=== PATIENT | male | born 1960 | race Caucasian/White ===

== ENCOUNTER 2018-11-18 14:35 | Emergency (ER) | payer OTHER ==
[~2018-11-18] VITALS: Ht 190.5 cm; Wt 125.6 kg
[~2018-11-18 14:35] MED LIST: ALLOPURINOL300 MG PO; DEXILANT60 MG PO; INDOMETHACIN50 MG PO; LISINOPRIL10 MG PO; PRILOSEC OTC20 MG PO; PROAIR HFA INH8.5 GM IH; SINGULAIR10 MG PO; SYMBICORT 16010.2 GM INH; ULTRACET TABLE1 EACH PO; VITAMIN D PO
--- OUTSIDE RECORDS SUMMARY | 2018-11-18 14:41 | XMS REPORT | Clinical Summary ---
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 Active triamcinolone (NASACORT) 2 sprays into 0 55 mcg nasal inhaler each nostril daily. Active Problems No known active problems Social History Date Tobacco Use Types Packs/Day Years Used Never Smoker Alcohol Use Drinks/Week oz/Week Comments No Sex Assigned at Date Recorded Not on file Industry Job Start Date Occupation Not on file Not on file Not on file Travel End Travel History Travel Start No recent travel history available. Last Filed Vital Signs Not on file Plan of Treatment Health Maintenance Due Date Last Done Comments COLONOSCOPY SCREENING 2011 SHINGLES VACCINES (#1) 2011 INFLUENZA VACCINE 12/12/2018 Results Not on fileafter 11/17/2017 Insurance Type Payer Benefit Subscriber ID Effective Phone Address Plan / Dates Group TPL TPL TPL-MED-DA xxxxxxxxxx 2016- TA Present Exchange [employer] xxxxxxxxxxxxx 2016-P EXCHANGE [facility] Liability Advance Directives Patient has advance care planning documents on file. For more information, fermin paige contact: Shiv Llamas [address] [place] [address]
--- OUTSIDE RECORDS SUMMARY | 2018-11-18 14:41 | XMS REPORT | Clinical Summary ---
Author Author DIVINA Cloud [facility] HospitalR[facility] Organization [facility] Address Unknown Phone Unavailable Care Team Providers Care Office Rental Clerk Name Role Phone Sharpless PCP Allergies Comments Active Allergy Reactions Severity Noted Date Iodinated Contrast- Oral Swelling 02/08/2017 And Iv Dye Medications End Date Status Medication Sig Dispensed Refills Start Date Active albuterol HFA (VENTOLIN Inhale 2 0 HFA) 90 mcg/actuation puffs by inhaler mouth via inhaler every 6 (six) hours as needed for Wheezing or Shortness of Breath. Active amitriptyline (ELAVIL) 10 Take 10 mg by 0 MG tablet mouth nightly. Active fluticasone (FLONASE) 50 2 sprays by 0 mcg/actuation nasal spray Nasal route daily. Active fluticasone-salmeterol Inhale 1 puff 0 (ADVAIR) 250-50 mcg/dose by mouth via diskus inhaler inhaler every 12 (twelve) hours. Active gabapentin (NEURONTIN) Take 300 mg 0 300 MG capsule by mouth 3 (three) times daily. Active lisinopril Take 10 mg by 0 (PRINIVIL,ZESTRIL) 10 MG mouth daily. tablet Active montelukast (SINGULAIR) Take 10 mg by 0 10 mg tablet mouth nightly. Active omeprazole (PRILOSEC) 40 Take 40 mg by 0 MG capsule mouth 2 (two) times daily. Active ranitidine (ZANTAC) 300 Take 300 mg 0 MG tablet by mouth nightly. Active traMADol (ULTRAM) 50 mg Take 50 mg by 0 tablet mouth every 6 (six) hours as needed for Pain. 11/22/2017 Discontinued lisinopril Take 10 mg by 0 (PRINIVIL,ZESTRIL) 10 MG mouth daily. tablet 11/22/2017 Discontinued naproxen (NAPROSYN) 500 Take 500 mg 0 MG tablet by mouth as needed. 11/22/2017 Discontinued cetirizine (ZYRTEC) 5 MG Take 5 mg by 0 tablet mouth daily. 11/22/2017 Discontinued amitriptyline (ELAVIL) 10 TAKE ONE 0 MG tablet TABLET BY 8 MOUTH AT BEDTIME 11/22/2017 Discontinued gabapentin (NEURONTIN) TAKE 2 0 300 MG capsule CAPSULES BY 8 MOUTH AT NOON 11/22/2017 Discontinued triamcinolone (NASACORT) Nasacort 0 55 mcg nasal inhaler 11/22/2017 Discontinued fluticasone (FLONASE) 50 2 sprays. 0 mcg/actuation nasal spray 8 11/22/2017 Discontinued albuterol HFA (VENTOLIN Inhale 2 0 HFA) 90 mcg/actuation puffs by 8 inhaler mouth via inhaler every 6 (six) hours as needed for Wheezing or Shortness of Breath . 11/22/2017 Discontinued ranitidine (ZANTAC) 300 Take 300 mg 0 MG tablet by mouth nightly. 11/22/2017 Discontinued omeprazole (PRILOSEC) 40 Take 40 mg by 0 MG capsule mouth 2 (two) times daily. Active Problems Problem Noted Date Acute chest pain 11/22/2017 Gastroesophageal reflux disease without esophagitis 11/22/2017 History of hiatal hernia 11/22/2017 Essential hypertension 11/22/2017 BARBER on CPAP 11/22/2017 Obesity (BMI 30.0-34.9) 11/22/2017 Moderate intermittent asthma without complication 11/22/2017 Right sided abdominal pain 11/22/2017 History of cholecystectomy 11/22/2017 History of Svetlana fundoplication 2014 11/22/2017 Chronic back pain greater than 3 months duration 11/22/2017 Resolved Problems Problem Noted Date Resolved Date Chest pain in adult 11/22/2017 11/22/2017 Shortness of breath 11/22/2017 11/22/2017 Dizziness 11/22/2017 11/22/2017 Nausea 11/22/2017 11/22/2017 Inguinal hernia 02/14/2017 11/22/2017 Encounters Care Team Description Date Type Specialty Lana Reyes MD BaljinderKyle pitt MD Chest pain in adult (Primary Dx); Nausea; Shortness of breath; Dizziness 11/22/2017 Emergency Cardiology - 11/24/2017 11/22/2017 Emergency Emergency Medicine 11/22/2017 Orders Only General Internal Medicine after 11/17/2017 Immunizations Name Dates Previously Given Next Due Tdap 05/14/2010 Family History Medical History Relation Name Comments Heart disease Father Heart disease Maternal Grandfather Cancer Maternal Grandmother Heart disease Mother Cancer Sister Relation Name Status Comments Father Maternal Grandfather Maternal Grandmother Mother Sister Social History Date Tobacco Use Types Packs/Day Years Used Never Smoker Smokeless Tobacco: Never Used Alcohol Use Drinks/Week oz/Week Comments No Sex Assigned at Date Recorded Not on file Industry Job Start Date Occupation Not on file Not on file Not on file Travel End Travel History Travel Start No recent travel history available. Last Filed Vital Signs Time Taken Vital Sign Reading 11/24/2017 5:51 AM CDT Blood Pressure 120/67 11/24/2017 9:16 AM CDT Pulse 69 11/24/2017 5:51 AM CDT Temperature 36.5 C (97.7 F) 11/24/2017 9:16 AM CDT Respiratory Rate 18 11/24/2017 9:16 AM CDT Oxygen Saturation 99% - Inhaled Oxygen - Concentration 11/24/2017 7:15 AM CDT Weight 118.5 kg (261 lb 4.8 oz) - Height - 11/24/2017 7:15 AM CDT Body Mass Index 32.66 Plan of Treatment Not on file Implants Device Identifier Shelf Expiration Date Model / Serial / Lot Implanted Type Area Manufactur er 03/10/2021 [id number] / / [id number] Mesh Maliha Pre-Shp 4.5x10cm [id number] Mesh Right: Inguinal CR - [id number] BARD:DAVOL Implanted: Qty: 1 on 02/14/2017 by Gerson Cruz MD Procedures Comments Procedure Name Priority Date/Time Associated Diagnosis RHYTHM STRIP - SCAN 11/27/2017 7:51 AM CDT ED ECG INTERPRETATION Routine 11/26/2017 3:[address] ABDOMEN/PELVIS WITHOUT STAT 11/23/2017 IV CONTRAST 9:30 PM CDT NM CARDIAC PET PERFUSION Routine 11/23/2017 REST AND/OR STRESS 4:23 PM CDT TREADMILL Routine 11/23/2017 TOLERANCE(NON-NUCLEAR 4:04 PM CDT TREADMILL) RHYTHM STRIP - SCAN 11/23/2017 10:52 AM CDT POCT-GLUCOSE METER Routine 11/23/2017 7:07 AM CDT AMYLASE DESEAN 11/22/2017 11:20 PM CDT LIPASE DESEAN 11/22/2017 11:20 PM CDT TROPONIN I DESEAN 11/22/2017 11:20 PM CDT XR ABDOMEN 2 VIEWS FLAT STAT 11/22/2017 AND UPRIGHT 11:08 PM CDT POCT-GLUCOSE METER Routine 11/22/2017 9:51 PM CDT XR CHEST 2 VIEWS STAT 11/22/2017 4:27 PM CDT D-DIMER STAT 11/22/2017 4:08 PM CDT RAPID MYOGLOBIN STAT 11/22/2017 4:00 PM CDT CBC W/PLT COUNT & AUTO STAT 11/22/2017 DIFFERENTIAL 3:59 PM CDT B-TYPE NATRIURETIC FACTOR STAT 11/22/2017 (BNP) 3:59 PM CDT CREATINE KINASE (CK) STAT 11/22/2017 3:59 PM CDT RAPID TROPONIN I STAT 11/22/2017 3:59 PM CDT RAPID CK-MB STAT 11/22/2017 3:59 PM CDT PROTHROMBIN TIME/INR STAT 11/22/2017 3:59 PM CDT MAGNESIUM STAT 11/22/2017 3:59 PM CDT COMPREHENSIVE METABOLIC STAT 11/22/2017 PANEL 3:59 PM CDT CBC W/PLT COUNT & AUTO STAT 11/22/2017 DIFFERENTIAL 3:59 PM CDT ECG 12-LEAD STAT 11/22/2017 3:48 PM CDT after 11/17/2017 Results * RHYTHM STRIP - SCAN (11/27/2017 7:51 AM CDT) Only the most recent of 2 results within the time period is included. Narrative Performed At * ED ECG Interpretation (11/26/2017 3:39 PM CDT) Narrative Performed At Lana Reyes MD 11/26/20173:39 PM ECG/EKG Interpretation Date/Time: 11/22/2017 3:48 PM Performed by: LANA REYES Authorized by: LANA REYES The ECG was interpreted by ED physician. This ECG was not compared with previous ECG(s).The ECG is interpreted as sinus rhythm. Rate is normal rate. Heart rate is 83 BPM. Conduction: conduction normal. T-wave flattening in lead(s) III and aVF. Other findings: no other findings. Right sided lead use: right-sided leads not used. Left sided lead use: Posterior leads were not used. Clinical Impression: non-specific ECGECG reviewed and does not meet STEMI criteria. Patient tolerance: Patient tolerated the procedure well with no immediate complications * CT abdomen/pelvis without iv contrast (11/23/2017 9:30 PM CDT) Specimen Narrative Performed At FINAL REPORT [facility] CT of the abdomen and pelvis History: Abdominal pain Comparison: None available. Technique: Multidetector CT scanning of the abdomen and pelvis was performed from the level of the lung bases to the inferior pubic ramus without contrast. DOSE REDUCTION: The examination was performed according to departmental dose-optimization program which includes automated exposure control, adjustment of the mA and/or kV according to patient size and/or use of iterative reconstruction technique. Discussion: The bilateral lung bases are clear. Lack of IV contrast limits evaluation of solid and hollow visceral organs. No focal hepatic lesions are identified. The gallbladder is surgically absent. There is no intrahepatic or extrahepatic biliary dilatation. The spleen is within normal limits of size. The right adrenal gland is normal. The left adrenal gland contains a left adrenal gland contains a 2.1 cm myelolipoma. The pancreas is within normal limits. The kidneys are normal in size. There is no hydroureteronephrosis. No obstructing renal calculi are identified. The stomach demonstrates postsurgical changes consistent with a Svetlana fundoplication. The stomach, small, and large bowel are nondistended. There is no evidence of obstruction. No bowel wall thickening is appreciated. The appendix is normal. There are scattered colonic diverticula without evidence of acute diverticulitis. There is no free retroperitoneal air or ascites. The abdominal aorta is of normal course and caliber. No enlarged abdominal or retroperitoneal lymph nodes are identified. The urinary bladder is within normal limits. No acute osseous abnormalities are identified. IMPRESSION: 1. Colonic diverticulosis without evidence of acute diverticulitis. 2. Status post cholecystectomy and Svetlana fundoplication. 3. Left adrenal myelolipoma. Signed: Vito Pillai MD Report Verified Date/Time:11/23/2017 21:41:46 Reading Location: [facility] [id number] Consult Reading Room Procedure Note Interface, External Ris In - 11/23/2017 9:43 PM CDT FINAL REPORT CT of the abdomen and pelvis History: Abdominal pain Comparison: None available. Technique: Multidetector CT scanning of the abdomen and pelvis was performed from the level of the lung bases to the inferior pubic ramus without contrast. DOSE REDUCTION: The examination was performed according to departmental dose-optimization program which includes automated exposure control, adjustment of the mA and/or kV according to patient size and/or use of iterative reconstruction technique. Discussion: The bilateral lung bases are clear. Lack of IV contrast limits evaluation of solid and hollow visceral organs. No focal hepatic lesions are identified. The gallbladder is surgically absent. There is no intrahepatic or extrahepatic biliary dilatation. The spleen is within normal limits of size. The right adrenal gland is normal. The left adrenal gland contains a left adrenal gland contains a 2.1 cm myelolipoma. The pancreas is within normal limits. The kidneys are normal in size. There is no hydroureteronephrosis. No obstructing renal calculi are identified. The stomach demonstrates postsurgical changes consistent with a Svetlana fundoplication. The stomach, small, and large bowel are nondistended. There is no evidence of obstruction. No bowel wall thickening is appreciated. The appendix is normal. There are scattered colonic diverticula without evidence of acute diverticulitis. There is no free retroperitoneal air or ascites. The abdominal aorta is of normal course and caliber. No enlarged abdominal or retroperitoneal lymph nodes are identified. The urinary bladder is within normal limits. No acute osseous abnormalities are identified. IMPRESSION: 1. Colonic diverticulosis without evidence of acute diverticulitis. 2. Status post cholecystectomy and Svetlana fundoplication. 3. Left adrenal myelolipoma. Signed: Vito Pillai MD Report Verified Date/Time: 11/23/2017 21:41:46 Reading Location: [facility] B1 [id number] Consult Reading Room Performing Organization Address City/State/Zipcode Phone Number [facility] * NM myocardial perfusion PET (rest and stress) (11/23/2017 4:23 PM CDT) Specimen Narrative Performed At FINAL REPORT [facility] PROCEDURE: Rest/Stress MYOCARDIAL PERFUSION PET with regadenoson\XA9\ CPT CODE: 74600 INDICATION: Chest pain HISTORY: Cardiac risk factors: hypertension, obesity, family hx of early CAD. Other cardiovascular history: None reported. Recent cardiac symptoms: chest pain, dyspnea. Current cardiovascular-related medications: None listed. PROTOCOL: Limited low-dose CT imaging was performed for attenuation correction. 40.1 mCi of Rb-82 chloride was injected iv at rest, and gated PET (positron emission tomography) images were obtained. Subsequently, 40.0 mCi of Rb-82 chloride was injected iv at expected peak pharmacologic effect, and gated PET images were obtained. PRELIMINARY STRESS TEST DATA FROM NONINVASIVE CARDIOLOGY: Pharmacologic stress was by 10-second iv infusion of 0.4 mg of regadenoson. Radiotracer was injected 30 seconds after start of stress. Heart rate was 66 beats/min at rest and 68 beats/min (41% of MPHR) at tracer injection. BP was 116/69 mmHg at rest and 129/63 mmHg at tracer injection. Stress was stopped for predetermined endpoint. The patient experienced dyspnea; treatment was not required. Preliminary ECG evaluation revealed sinus rhythm at rest and no ischemic changes with stress. (Final ECG interpretation and other stress and monitoring data are reported separately by Cardiology.) IMAGING FINDINGS: Study quality is good. Images obtained after rest and stress injections show normal LV activity. LV and RV volumes appear normal. Gated images obtained at rest and with stress show normal LV wall motion and thickening. LVEF at rest is 57%. LVEF at stress is 72%. IMPRESSION: 1. Normal study.2. Appropriate pharmacologic stress.3. Normal myocardial perfusion.4. Normal resting LV function. No deterioration of function is noted with pharmacologic stress.5. Normal extracardiac tracer distribution.6. No previous [facility] study for comparison. NONINVASIVE RISK STRATIFICATION: The above findings are considered low risk (<1% annual mortality rate) based on the following criterion: - Normal or small myocardial perfusion defect at rest or with stress ([facility]. 2012;59(9):857-81.) Signed: Jama Cartwright MD Report Verified Date/Time:11/23/2017 21:20:37 Reading Location: [address] Reading Room Procedure Note Interface, External Ris In - 11/23/2017 9:22 PM CDT FINAL REPORT PROCEDURE: Rest/Stress MYOCARDIAL PERFUSION PET with regadenoson\XA9\ CPT CODE: 56737 INDICATION: Chest pain HISTORY: Cardiac risk factors: hypertension, obesity, family hx of early CAD. Other cardiovascular history: None reported. Recent cardiac symptoms: chest pain, dyspnea. Current cardiovascular-related medications: None listed. PROTOCOL: Limited low-dose CT imaging was performed for attenuation correction. 40.1 mCi of Rb-82 chloride was injected iv at rest, and gated PET (positron emission tomography) images were obtained. Subsequently, 40.0 mCi of Rb-82 chloride was injected iv at expected peak pharmacologic effect, and gated PET images were obtained. PRELIMINARY STRESS TEST DATA FROM NONINVASIVE CARDIOLOGY: Pharmacologic stress was by 10-second iv infusion of 0.4 mg of regadenoson. Radiotracer was injected 30 seconds after start of stress. Heart rate was 66 beats/min at rest and 68 beats/min (41% of MPHR) at tracer injection. BP was 116/69 mmHg at rest and 129/63 mmHg at tracer injection. Stress was stopped for predetermined endpoint. The patient experienced dyspnea; treatment was not required. Preliminary ECG evaluation revealed sinus rhythm at rest and no ischemic changes with stress. (Final ECG interpretation and other stress and monitoring data are reported separately by Cardiology.) IMAGING FINDINGS: Study quality is good. Images obtained after rest and stress injections show normal LV activity. LV and RV volumes appear normal. Gated images obtained at rest and with stress show normal LV wall motion and thickening. LVEF at rest is 57%. LVEF at stress is 72%. IMPRESSION: 1. Normal study. 2. Appropriate pharmacologic stress. 3. Normal myocardial perfusion. 4. Normal resting LV function. No deterioration of function is noted with pharmacologic stress. 5. Normal extracardiac tracer distribution. 6. No previous [facility] study for comparison. NONINVASIVE RISK STRATIFICATION: The above findings are considered low risk (<1% annual mortality rate) based on the following criterion: - Normal or small myocardial perfusion defect at rest or with stress ([facility]. 2012;59(9):857-81.) Signed: Jama Cartwright MD Report Verified Date/Time: 11/23/2017 21:20:37 Reading Location: [place] [id number] [place] Reading Room Performing Organization Address City/State/Zipcode Phone Number [facility] * Treadmill tolerance(Non-Nuclear Treadmill) (11/23/2017 4:04 PM CDT) Specimen Narrative Performed At Protocol Name Regadenoson GE MUSE Time In Exercise Phase 00:01:00 Max. Systolic BP 129 mmHg Max Diastolic BP 63 mmHg Max Heart Rate 68 BPM Max Predicted Heart Rate 164 BPM Reason For Termination Predetermined end point Reason for Test Chest Pain Target HR Formula (220 - Age)*100% Arrhythmias ventricular premature beats-isolated Resting ECG Normal sinus rhythm ST Changes No Significant Changes Overall Impression Indeterminate due to pharmacological stress Chest Pain none HR Response To Exercise BP Response To Exercise No cardiac Rx Confirmed by fellow Kody Tidwell ([id number]) on 11/25/2017 6:27:21 PM Confirmed by MD ESPINAL YOCHAI ([id number]) on 11/25/2017 8:07:52 PM Procedure Note Interface, External Ris In - 11/25/2017 8:08 PM CDT Protocol Name Regadenoson Time In Exercise Phase 00:01:00 Max. Systolic BP 129 mmHg Max Diastolic BP 63 mmHg Max Heart Rate 68 BPM Max Predicted Heart Rate 164 BPM Reason For Termination Predetermined end point Reason for Test Chest Pain Target HR Formula (220 - Age)*100% Arrhythmias ventricular premature beats-isolated Resting ECG Normal sinus rhythm ST Changes No Significant Changes Overall Impression Indeterminate due to pharmacological stress Chest Pain none HR Response To Exercise BP Response To Exercise No cardiac Rx Confirmed by fellow Kody Tidwell ([id number]) on 11/25/2017 6:27:21 PM Confirmed by MD ESPINAL YOCHAI ([id number]) on 11/25/2017 8:07:52 PM Performing Organization Address City/[facility] Phone Number [facility] * POC-Glucose meter (11/23/2017 7:07 AM CDT) Only the most recent of 2 results within the time period is included. POC-Glucose Meter 91Comment: TESTED AT [facility] 70 - 110 mg/dL [address] Specimen Blood Performing Organization Address [facility] [place] Phone Number [address] * Troponin I (11/22/2017 11:20 PM CDT) Troponin I <0.01 0.00 - 0.03 ng/mL [facility] Specimen Blood Narrative Performed At Troponin I (TnI) levels must be interpreted in the context of the presenting [facility] symptoms and the clinical findings. Elevated TnI levels indicate myocardial [facility] damage, but are not specific for ischemic heart disease. Elevated TnI levels are seen in patients with other cardiac conditions (including myocarditis and congestive heart failure), and slight TnI elevations occur in patients with other conditions, including sepsis, renal failure, acidosis, acute neurological disease, and persistent tachyarrhythmia. Performing Organization Address [facility] [place] [address] [phone] [place] [address] * Lipase (11/22/2017 11:20 PM CDT) Lipase 39 8 - 78 U/L [facility] Specimen Blood Performing Organization Address [facility] [place] [address] [facility] * Amylase (11/22/2017 11:20 PM CDT) Amylase 41 25 - 125 U/L [facility] Specimen Blood Performing Organization Address City/[facility]/Zipcode Phone Number [facility] [address] [place] [address] MEDICAL CENTER * XR abdomen 2 views flat and upright (11/22/2017 11:08 PM CDT) Specimen Narrative Performed At FINAL REPORT [facility] Abdominal series, upright and supine views CLINICAL HISTORY: Abdominal pain COMPARISON: None FINDINGS: The bowel gas pattern is nonobstructive. No free intraperitoneal air or air-fluid levels are identified. The regional osseous skeleton is intact. IMPRESSION: Nonobstructive bowel gas pattern. Signed: Vito Pillai MD Report Verified Date/Time:11/22/2017 23:12:35 Reading Location: [address] Consult Reading Room Procedure Note Interface, External Ris In - 11/22/2017 11:14 PM CDT FINAL REPORT Abdominal series, upright and supine views CLINICAL HISTORY: Abdominal pain COMPARISON: None FINDINGS: The bowel gas pattern is nonobstructive. No free intraperitoneal air or air-fluid levels are identified. The regional osseous skeleton is intact. IMPRESSION: Nonobstructive bowel gas pattern. Signed: Vito Pillai MD Report Verified Date/Time: 11/22/2017 23:12:35 Reading Location: [address] Consult Reading Room Performing Organization Address City/[facility] Phone Number [facility] * XR chest 2 views (11/22/2017 4:27 PM CDT) Specimen Narrative Performed At FINAL REPORT RIS TECHNIQUE: Frontal and lateral chest radiographs dated 11/22/2017. CLINICAL HISTORY: Chest pain COMPARISON STUDY: None FINDINGS: Atelectasis is seen in the left lung base. No focal consolidation. No pleural effusion or pneumothorax. Cardiomediastinal silhouette is normal in size. Small hiatal hernia is present. No pulmonary edema. Degenerative changes are seen in the spine. No fracture. IMPRESSION: No focal consolidation. Signed: Winsome Conner MD Report Verified Date/Time:11/22/2017 16:37:25 Reading Location: [facility] Radiology Reading Room Procedure Note Interface, External Ris In - 11/22/2017 4:39 PM CDT FINAL REPORT TECHNIQUE: Frontal and lateral chest radiographs dated 11/22/2017. CLINICAL HISTORY: Chest pain COMPARISON STUDY: None FINDINGS: Atelectasis is seen in the left lung base. No focal consolidation. No pleural effusion or pneumothorax. Cardiomediastinal silhouette is normal in size. Small hiatal hernia is present. No pulmonary edema. Degenerative changes are seen in the spine. No fracture. IMPRESSION: No focal consolidation. Signed: Winsome Conner MD Report Verified Date/Time: 11/22/2017 16:37:25 Reading Location: [facility] Radiology Reading Room Performing Organization Address [facility] [place] Phone Number [facility] * D-dimer, quantitative (11/22/2017 4:08 PM CDT) D-Dimer, Quant 0.24 <0.50 MG/L FEU [facility], COUNT INCLUDES THE [facility] EMERGENCY [facility] Specimen Blood Narrative Performed At REGARDING D-DIMER RESULTS: Results of this D-Dimer test should always be [facility] [place] interpreted in conjunction with the patient's medical history, clinical [facility] MEDICAL presentation and other findings. DVT clinical diagnosis should not be based on [place], [facility]ITY the results of [place] D-Dimer alone. EM[facility]Y [facility], [facility] Performing Organization Address [facility] Phone Number [facility] [phone] [place] [id number] [facility], COUNT INCLUDES THE [facility] EMERGENCY [facility] * Rapid Myoglobin ([facility] Only) (11/22/2017 4:00 PM CDT) Rapid Myoglobin 56 <107 ng/mL [facility], COUNT INCLUDES THE [facility] EMERGENCY [facility] Specimen Blood Performing Organization Address [facility] Phone Number [facility] [phone] [place] [address] [id number] [facility] * Rapid Troponin I ([facility] Only) (11/22/2017 3:59 PM CDT) Rapid Troponin I <0.05 <0.05 ng/mL [facility] Specimen Blood Performing Organization Address [facility] Phone Number [facility] [address] [place] [address] [facility] * Rapid CK-MB ([facility] Only) (11/22/2017 3:59 PM CDT) Rapid CKMB <1.0 0.0 - 4.3 ng/mL [facility] Specimen Blood Performing Organization Address [facility] Phone Number [facility] [address] [place] [address] [facility] * CBC with platelet count + automated diff (11/22/2017 3:59 PM CDT) WBC 6.2 4.0 - 10.0 10e3/L [facility] RBC 4.69 4.20 - 5.80 10e6/L [facility] Hemoglobin 14.1 13.0 - 16.8 g/dL [facility] Hematocrit 41.8 40.0 - 50.0 % [facility] MCV 89.2 82.0 - 98.0 fL [facility] MCH 30.1 27.0 - 33.0 pg [facility] MCHC 33.7 32.0 - 36.0 g/dL [facility] RDW 12.8 10.3 - 14.2 % [facility] Platelets 194 150 - 430 10e3/L [facility] MPV 7.2 6.5 - 10.5 fL [facility] % Neutros 52 % [facility] % Lymphs 34 % [facility] % Monos 10 % [facility] % Eos 3 % [facility] % Baso 1 % [facility] # Neutros 3.23 1.80 - 8.00 10e3/L [facility] # Lymphs 2.08 1.48 - 4.50 10e3/L [facility] # Monos 0.59 0.00 - 1.30 10e3/L [facility] # Eos 0.20 0.00 - 0.50 10e3/L [facility] # Baso 0.06 0.00 - 0.20 10e3/L [facility] Specimen Blood Performing Organization Address City/State/Zipcode Phone Number DIVINA KC REGINA [address] [place] [address] [facility] * PT/INR (11/22/2017 3:59 PM CDT) Protime 9.8 9.8 - 12.0 seconds [facility] INR 0.9 <=5.9 [facility] Specimen Blood Narrative Performed At RECOMMENDED COUMADIN/WARFARIN INR THERAPY RANGES [facility] STANDARD DOSE: 2.0 - 3.0 Includes: PROPHYLAXIS for venous thrombosis, [facility] systemic embolization; TREATMENT for venous thrombosis and/or pulmonary embolus. [facility] HIGH RISK: Target INR is 2.5-3.5 for patients with mechanical heart valves. [facility] Performing Organization Address City/[facility] Phone Number [phone] [facility] * B-type Natriuretic Factor (BNP) (11/22/2017 3:59 PM CDT) BNP 8 0 - 100 pg/mL [facility] Specimen Blood Performing Organization Address City/[facility] Phone Number [phone] [facility] * Magnesium (11/22/2017 3:59 PM CDT) Magnesium 2.1 1.5 - 3.0 mg/dL [facility] Specimen Blood Performing Organization Address City/[facility]/Zipcode Phone Number [address] [facility] * Creatine Kinase (CK) (11/22/2017 3:59 PM CDT) Total CK 28 (L) 40 - 250 U/L [facility] Specimen Blood Performing Organization Address City/[facility] Phone Number [address] [phone] [facility] * Comprehensive metabolic panel (11/22/2017 3:59 PM CDT) Protein, Total 6.9 6.0 - 8.5 gm/dL [facility] Albumin 4.2 3.5 - 5.0 g/dL [facility] Alkaline Phosphatase 80 30 - 115 U/L [facility] Total Bilirubin 0.5 0.1 - 1.2 mg/dL [facility] Sodium 144 135 - 148 meq/L [facility] Potassium 3.9 3.6 - 5.5 meq/L [facility] Chloride 107 (H) 98 - 106 meq/L [facility] CO2 24 24 - 32 meq/L [facility] BUN 15 10 - 26 mg/dL [facility] Creatinine 0.97 0.50 - 1.20 mg/dL [facility] Glucose 85 70 - 110 mg/dL [facility] Calcium 8.7 8.5 - 10.5 mg/dL [facility] AST 24 5 - 40 U/L [facility] ALT 30 5 - 50 U/L [facility] EGFR 80Comment: ESTIMATED GFR IS mL/min/1.73 sq m [facility] NOT ACCURATE CREATININE [facility] CLEARANCE IN [facility] GLOMERULAR FILTRATION RATE. [facility] [place], ESTIMATED GFR IS NOT [facility] APPLICABLE FOR DIALYSIS PATIENTS. Specimen Blood Performing Organization Address City/State/Zipcode Phone Number DIVINA MCKEON [address] [place] [address] [facility] * ECG 12 lead (11/22/2017 3:48 PM CDT) Specimen Narrative Performed At Ventricular Rate 83 BPM GE MUSE Atrial Rate 83 BPM P-R Interval 184 ms QRS Duration 78 ms Q-T Interval 366 ms QTC Calculation(Bazett) 430 ms P [place] 29 degrees R [place] -13 degrees T [place] 8 degrees Normal sinus rhythm Normal ECG No previous ECGs available Confirmed by MD JELLY, IHAB ([id number]) on 11/23/2017 6:17:19 AM Procedure Note Interface, External Ris In - 11/23/2017 6:17 AM CDT Ventricular Rate 83 BPM Atrial Rate 83 BPM P-R Interval 184 ms QRS Duration 78 ms Q-T Interval 366 ms QTC Calculation(Bazett) 430 ms P [place] 29 degrees R [place] -13 degrees T [place] 8 degrees Normal sinus rhythm Normal ECG No previous ECGs available Confirmed by MD JELLY, IHAB ([id number]) on 11/23/2017 6:17:19 AM Performing Organization Address City/State/Zipcode Phone Number KATY BIGGS after 11/17/2017 Insurance Payer Benefit Subscriber ID Type Phone Address Plan / Group [facility] xxxxxxxxxxxxx [phone] [facility] Advance Directives Patient has advance care planning documents, and code status on file. For more i nformation, please contact: DIVINA MckeonHappy [employer] [facility] [address] [place] [address] Date Inactivated Comments Code Status Date Activated 11/24/2017 2:13 PM Full Code 11/22/2017 10:05 PM This code status was determined by: Patient 02/14/2017 7:22 PM Full Code 02/14/2017 10:50 AM This code status was determined by: Patient
--- OUTSIDE RECORDS SUMMARY | 2018-11-18 14:42 | XMS REPORT ---
Author Author [facility] Address Unknown Phone Unavailable Care Team Providers Care Computer Discovery Teacher Name Role Phone MICHAEL GARCIA Unavailable Unavailable Problems This patient has no known problems. Allergies, Adverse Reactions, Alerts This patient has no known allergies or adverse reactions. Medications This patient has no known medications. Results Test Description Test Time Test Comments Text Results Atomic Results Result Comments CT, ABDOMEN 2017-11-23 21:41:00 Reason for exam:->abdominal painWhat is the patient's sedation requirement?->No Sedation FINAL REPORT CT of the abdomen and pelvis History: Abdominal pain Comparison: None available. Technique: [facility] idetector CT scanning of the abdomen and pelvis [...] There is no hydroureteronephrosis. No obstructing renal calc reina are identified. The stomach demonstrates postsurgical changes [...] limits. No acute osseous abnormalities are identified. IMPRESSION:1. Colonic diverticulosis without evidence of acute diverticulitis.2. Status post cholecystectomy and Svetlana fundoplication.3. Left adrenal myelolipoma. Signed: Vito Pillai MDReport Verified Date/Time: 11/23/2017 21:41:46 Reading Location: [facility] B1 C013W Consult Reading Room , CARDIAC PERFUSION MULTIPLE STUDIES, REST AND STRESS 2017-11-23 21:20:00 Reason for exam:->Chest pain FINAL REPORT PROCEDURE: Rest/Stress MYOCARDIAL PERFUSION PET with regadenoson\XA9\ CPT CODE: 07256 INDICATION: Chest pain HISTORY: Cardiac risk factors: [...] stress show normal LV wall motion and thickenin g. LVEF at rest is 57%. LVEF at stress is 72%. IMPRESSION: 1. Normal study. 2. Appropriate pharmacologic stress. 3. Normal myocardial perfusion. 4. Normal resting LV function. No deterioration of function is noted with pharmacologic stress. 5. Normal extracardiac tracer distribution. 6. No previous [facility] study for comparison. NONINVASIVE RISK STRATIFICATION: The above findings are considered low risk (<1% annual mortality rate) based on the following criterion:- Normal or small myocardial perfusion defect at rest or with stress(JACC. 2012;59(9):578-81.) Signed: Jama Cartwright Verified Date/Time: 11/23/2017 21:20:37 Reading Location: [address] Reading Room -GLUCOSE METER 2017-11-23 07:38:00 POC-GLUCOSE METER (BEAKER) (test zlio=6650) 91 mg/dL 70-110 TESTED AT [facility] [address] [facility] [address] TROPONIN [id number] 23:53:00* Test Item Value Reference Range Comments TROPONIN I (BEAKER) (test idgn=070) < ng/mL 0.00-0.03 Troponin I (TnI) levels must be interpreted in the context of the presenting sym ptoms and the clinical findings. Elevated TnI levels indicate myocardial damage, but are not specific for ischemic heart disease. Elevated TnI levels are seen in patients with other cardiac conditions (including myocarditis and congestive h eart failure), and slight TnI elevations occur in patients with other conditions , including sepsis, renal failure, acidosis, acute neurological disease, and per sistent tachyarrhythmia.[id number] 23:46:00* Test Item Value Reference Range Comments LIPASE (BEAKER) (test umqb=071) 39 U/L 8-78 [id number] 23:46:00* Test Item Value Reference Range Comments AMYLASE (BEAKER) (test ssqw=796) 41 U/L 25-125 RAD, ABDOMEN, 2 [id number] 23:12:00Reason for exam:->abdominal painFINAL REPORT Abdominal series, upright and supine views C LINICAL HISTORY: Abdominal pain COMPARISON: None FINDINGS:The bowel gas pattern is nonobstructive. No free intraperitoneal air or air-fluid levels are identifie d. The regional osseous skeleton is intact. IMPRESSION:Nonobstructive bowel gas pattern. Signed: Vito Pillai Verified Date/Time: 11/22/2017 23:12: 35 Reading Location: [facility] B1 C013W Consult Reading Room -GLUCOSE [id number] 21:52:00* Test Item Value Reference Range Comments POC-GLUCOSE METER (BEAKER) (test qqql=9788) 96 mg/dL 70-110 TESTED AT [facility] [address] [facility] [address] RAD, CHEST, 2 [id number] 16:37:00Reason for exam:->CHEST PAINFINAL REPORT TECHNIQUE: Frontal and lateral chest radiographs dated 11/22/2017. CLINICAL HISTORY: Chest pain COMPARISON STUDY: None FINDINGS: Atelectasis is seen in the left lung base. No focal consolidation. No pleural effusion or pneumothorax. Cardiomediastinal silhouette is normal in size. Small hiatal hernia is present. No pulmonary edema. Degenerative changes are seen in the spine. No fracture. IMPRESSION: No focal consolidation. Signed: Tabatha Almaguer MDReport Verified Date/Time: 11/22/2017 16:37:25 Reading Location: [facility] Radiology Reading Room [id number] 16:31:00* Test Item Value Reference Range Comments D-DIMER QUANTITATIVE (BEAKER) (test frhi=422) 0.24 MG/L FEU <0.50 REGARDING D-DIMER RESULTS: Results of this D-Dimer test should always be interpr eted in conjunction with the patient's medical history, clinical presentation an d other findings. DVT clinical diagnosis should not be based on the results of I NNOVANCE D-Dimer alone.PROTHROMBIN TIME/[id number] 16:26:00* Test Item Value Reference Range Comments PROTIME (BEAKER) (test qvdg=664) 9.8 seconds 9.8-12.0 INR (BEAKER) (test rjhs=658) 0.9 <=5.9 RECOMMENDED COUMADIN/WARFARIN INR THERAPY RANGESSTANDARD DOSE: 2.0 - 3.0 Inclu nicholas: PROPHYLAXIS for venous thrombosis, systemic embolization; TREATMENT for zandra ous thrombosis and/or pulmonary embolus.HIGH RISK: Target INR is 2.5-3.5 for pat ients with mechanical heart valves.RAPID [id number] 16:25:00* Test Item Value Reference Range Comments RAPID MYOGLOBIN (BEAKER) (test pctc=7792) 56 ng/mL <107 RAPID [id number] 16:25:00* Test Item Value Reference Range Comments RAPID CKMB (BEAKER) (test xeqk=9637) < ng/mL 0.0-4.3 B-TYPE NATRIURETIC FACTOR (BNP)2017-11-22 16:25:00* Test Item Value Reference Range Comments B-TYPE NATRIURETIC PEPTIDE (BEAKER) (test fxiy=338) 8 pg/mL 0-100 RAPID TROPONIN [id number] 16:24:00* Test Item Value Reference Range Comments RAPID TROPONIN I (BEAKER) (test cygk=4869) < ng/mL <0.05 [id number] 16:23:00* Test Item Value Reference Range Comments MAGNESIUM (BEAKER) (test uwxc=944) 2.1 mg/dL 1.5-3.0 COMPREHENSIVE METABOLIC [id number] 16:23:00* Test Item Value Reference Range Comments TOTAL PROTEIN (BEAKER) (test nqql=594) 6.9 gm/dL 6.0-8.5 ALBUMIN (BEAKER) (test hwhb=4845) 4.2 g/dL 3.5-5.0 ALKALINE PHOSPHATASE (BEAKER) (test grzg=088) 80 U/L 30-115 BILIRUBIN TOTAL (BEAKER) (test kfvo=974) 0.5 mg/dL 0.1-1.2 SODIUM (BEAKER) (test qdfl=221) 144 meq/L 135-148 POTASSIUM (BEAKER) (test ugqz=211) 3.9 meq/L 3.6-5.5 CHLORIDE (BEAKER) (test hsdw=593) 107 meq/L 98-106 CO2 (BEAKER) (test sofv=580) 24 meq/L 24-32 BLOOD UREA NITROGEN (BEAKER) (test asnz=368) 15 mg/dL 10-26 CREATININE (BEAKER) (test jpvf=308) 0.97 mg/dL 0.50-1.20 GLUCOSE RANDOM (BEAKER) (test opgi=380) 85 mg/dL 70-110 CALCIUM (BEAKER) (test ciao=557) 8.7 mg/dL 8.5-10.5 AST (SGOT) (BEAKER) (test alyk=000) 24 U/L 5-40 ALT (SGPT) (BEAKER) (test ncdj=834) 30 U/L 5-50 EGFR (BEAKER) (test mzvu=5909) 80 mL/min/1.73 sq m ESTIMATED GFR IS NOT ACCURATE CREATININE CLEARANCE IN PREDICTING GLOMERULAR FILTRATION RATE. ESTIMATED GFR IS NOT APPLICABLE FOR DIALYSIS PATIENTS. CREATINE KINASE (CK)2017-11-22 16:23:00* Test Item Value Reference Range Comments CREATINE KINASE TOTAL (BEAKER) (test xecm=121) 28 U/L 40-250 CBC W/PLT COUNT & AUTO [id number] 16:11:00* Test Item Value Reference Range Comments WHITE BLOOD CELL COUNT (BEAKER) (test fwtg=283) 6.2 10e3/i? L 4.0-10.0 RED BLOOD CELL COUNT (BEAKER) (test fgqq=549) 4.69 10e6/i? L 4.20-5.80 HEMOGLOBIN (BEAKER) (test ujvj=573) 14.1 g/dL 13.0-16.8 HEMATOCRIT (BEAKER) (test nzdn=751) 41.8 % 40.0-50.0 MEAN CORPUSCULAR VOLUME (BEAKER) (test amio=126) 89.2 fL 82.0-98.0 MEAN CORPUSCULAR HEMOGLOBIN (BEAKER) (test vdyy=476) 30.1 pg 27.0-33.0 MEAN CORPUSCULAR HEMOGLOBIN CONC (BEAKER) (test clou=839) 33.7 g/dL 32.0-36.0 RED CELL DISTRIBUTION WIDTH (BEAKER) (test xgmb=812) 12.8 % 10.3-14.2 PLATELET COUNT (BEAKER) (test mefg=269) 194 10e3/i? L 150-430 MEAN PLATELET VOLUME (BEAKER) (test emcg=475) 7.2 fL 6.5-10.5 NEUTROPHILS RELATIVE PERCENT (BEAKER) (test ouiq=626) 52 % LYMPHOCYTES RELATIVE PERCENT (BEAKER) (test uuam=064) 34 % MONOCYTES RELATIVE PERCENT (BEAKER) (test snmg=367) 10 % EOSINOPHILS RELATIVE PERCENT (BEAKER) (test hrmo=271) 3 % BASOPHILS RELATIVE PERCENT (BEAKER) (test xiuj=001) 1 % NEUTROPHILS ABSOLUTE COUNT (BEAKER) (test taft=354) 3.23 10e3/i? L 1.80-8.00 LYMPHOCYTES ABSOLUTE COUNT (BEAKER) (test dtyo=466) 2.08 10e3/i? L 1.48-4.50 MONOCYTES ABSOLUTE COUNT (BEAKER) (test qonb=860) 0.59 10e3/i? L 0.00-1.30 EOSINOPHILS ABSOLUTE COUNT (BEAKER) (test ituz=352) 0.20 10e3/i? L 0.00-0.50 BASOPHILS ABSOLUTE COUNT (BEAKER) (test lrxa=857) 0.06 10e3/i? L 0.00-0.20
--- NOTE | 2018-11-18 16:14 | Diagnostic Imaging Report ---
EXAMINATION: CXR 2 VIEW - HOPD INDICATION: Trauma COMPARISON: None FINDINGS: TUBES and LINES: None. LUNGS: The lung volumes are normal. No focal consolidation or pulmonary edema. PLEURA: No pleural effusion or pneumothorax. HEART AND MEDIASTINUM: The cardiomediastinal silhouette is normal in size and contour. Retrocardiac lucency, consistent with hiatal hernia. BONES AND SOFT TISSUES: No acute fracture or dislocation. UPPER ABDOMEN: No free air under the diaphragm. IMPRESSION: No focal consolidation or pulmonary edema. No acute fracture or dislocation. Hiatal hernia. Signed by: Pedro Moncada MD on 11/18/2018 4:10 PM
[2018-11-18 16:15] VITALS: BP 137/89
--- NOTE | 2018-11-18 16:17 | Diagnostic Imaging Report ---
EXAM: Cervical spine, 4 views DATE: 11/18/2018 INDICATION: Trauma COMPARISON: None FINDINGS: No acute fracture. The alignment is within normal limits. Mild multilevel degenerative changes of the cervical spine. The soft tissues appear unremarkable. IMPRESSION: No acute osseous injury of the cervical spine. Signed by: Pedro Moncada MD on 11/18/2018 4:14 PM
== END 2018-11-18 16:30 | disposition home or self-care (01) ==
LOC: FSED 14:35
DX: M54.2 Cervicalgia (principal); S16.1XXA Strain of muscle, fascia and tendon at neck level, initial encounter; M54.6 Pain in thoracic spine; S23.3XXA Sprain of ligaments of thoracic spine, initial encounter; V43.52XA Car driver injured in collision with other type car in traffic accident, initial encounter; Y92.488 Other paved roadways as the place of occurrence of the external cause; I10 Essential (primary) hypertension
CPT/HCPCS: 71046; 72040; 99283